=== PATIENT | female | born 2000 | race Caucasian/White ===

== ENCOUNTER 2021-06-02 17:29 | Emergency (ER) | payer OTHER ==
--- NOTE | 2021-06-02 18:30 | ED Physician Documentation ---
PD HPI LOWER EXT INJURY - Stated complaint Stated Complaint: RT ANKLE INJURY - Chief complaint Chief Complaint: Trauma Ext - History obtained from History obtained from: Patient - History of Present Illness PD HPI LOW EXT INJURY LOCATION: Right, Ankle Type of injury: Fall, Twist Where injury occurred: Street Timing - onset: How many days ago (5) Timing - duration: Days (5) Timing - details: Gradual onset Pain level max: 6 Pain level now: 5 Improved by: Rest, Ice, Immobilization Worsened by: Moving, Palpating Associated symptoms: Swelling, Discolored (bruising to lateral aspect R ankle). No: Weakness, Numbness, Tingling Contributing factors: No: Anticoagulated, Prior ortho surgery, Prosthetic joint Recently seen: Clinic (Patient states that she was seen in the clinic for same. No x-rays taken. She states increased swelling and pain since the original event. Concerned about possible fracture.) Review of Systems Constitutional: denies: Fever, Chills Respiratory: denies: Cough GI: denies: Vomiting, Diarrhea Skin: denies: Rash Musculoskeletal: denies: Neck pain, Back pain Neurologic: denies: Headache PD PAST MEDICAL HISTORY - Past Medical History Past Medical History: No - Past Surgical History Past Surgical History: No - Present Medications Home Medications: Ambulatory Orders Medication Instructions Recorded Confirmed No Known Home Medications 06/02/21 06/02/21 - Allergies Allergies/Adverse Reactions: Allergies Allergy/AdvReac Type Severity Reaction Status Date / Time No Known Drug Allergies Allergy Verified 06/02/21 17:40 - Social History Does the pt smoke?: No Smoking Status: Never smoker Does the pt drink ETOH?: No Does the pt have substance abuse?: No PD ED PE NORMAL - Vitals Vital signs reviewed: Yes - General General: Alert and oriented X 3, No acute distress - HEENT HEENT: Moist mucous membranes - Cardiac Cardiac: RRR - Respiratory Respiratory: No respiratory distress, Clear bilaterally - Derm Derm: Warm and dry - Extremities Extremities: Other (Tender to palpation over the right lateral malleolus. Mild ecchymosis. No tenderness over the fifth metatarsal. No gross deformity. Mild swelling over the right lateral malleolus as well. No proximal tenderness. Neurovascular intact. Otherwise normal exam of the right lower extremity and foot) - Neuro Neuro: Alert and oriented X 3 Results - Vitals Vitals: Vital Signs - 24 hr 06/02/21 06/02/21 17:37 19:27 Temperature 36.4 C L Heart Rate 88 79 Respiratory 16 18 Rate Blood Pressure 134/62 H 105/63 O2 Saturation 99 99 Oxygen O2 Source Room air - Rads (name of study) Right ankle x-ray Radiology: Final report received, EMP read contemporaneously, See rad report (No acute abnormality) PD MEDICAL DECISION MAKING - ED course Complexity details: reviewed results, re-evaluated patient, considered differential, d/w patient ED course: 21-year-old female with a right ankle sprain. No acute findings on x-ray. Placed in ankle air splint for comfort. Declines pain medication here or for home. Ambulating well. Patient counseled regarding signs and symptoms for which I believe and urgent re-evaluation would be necessary. Patient with good understanding of and agreement to plan and is comfortable going home at this time This document was made in part using voice recognition software. While efforts are made to proofread this document, sound alike and grammatical errors may occur. Departure - Departure Disposition: 01 Home, Self Care Clinical Impression: Right ankle sprain Qualifiers: Encounter type: initial encounter Involved ligament of ankle: unspecified ligament Qualified Code(s): S93.401A - Sprain of unspecified ligament of right ankle, initial encounter Condition: Good Instructions: ED Sprain Ankle Follow-Up: your,doctor as needed [Other] Comments: You can continue to use Motrin or Tylenol as needed for pain. You may bear weight as tolerated. Your x-ray does not show any acute abnormalities today. Please follow-up with your doctor for further care as needed. Discharge Date/Time: 06/02/21 19:28
--- NOTE | 2021-06-02 18:48 | XRAY Report ---
PROCEDURE: Ankle 3 View RT INDICATIONS: Trauma TECHNIQUE: 3 views of the ankle were acquired. COMPARISON: None FINDINGS: Bones: No fractures or dislocations. Ankle mortise is normally aligned. No suspicious bony lesions . Soft tissues: No tibiotalar joint effusion. Achilles tendon appears normal. IMPRESSION: Intact right ankle. Reviewed by: Angella Flores MD on 06/02/2021 6:47 PM PDT Approved by: Angella Flores MD on 06/02/2021 6:47 PM PDT Station ID: [id number]
[2021-06-02 19:28] VITALS: BP 105/63
== END 2021-06-02 19:28 | disposition home or self-care (01) ==
LOC: ED 17:29
DX: S93.401A Sprain of unspecified ligament of right ankle, initial encounter (principal); W19.XXXA Unspecified fall, initial encounter; Y92.410 Unspecified street and highway as the place of occurrence of the external cause
CPT/HCPCS: 99282; 99283

== ENCOUNTER 2022-06-26 08:00 | Outpatient (CLI) | payer OTHER ==
--- NOTE | 2022-06-26 14:33 | XRAY Report ---
PROCEDURE: Elbow 2 View RT INDICATIONS: R ELBOW PX TECHNIQUE: 2 views of the elbow were acquired. COMPARISON: None FINDINGS: Bones: No fractures or dislocations. No suspicious bony lesions. Soft tissues: No elbow joint effusion. No suspicious soft tissue calcifications. IMPRESSION: Unremarkable radiographic examination of right elbow. Reviewed by: John Castañeda MD on 06/26/2022 2:32 PM PST Approved by: John Castañeda MD on 06/26/2022 2:32 PM PST Station ID: [id number]
== END 2022-06-26 23:59 | disposition home or self-care (01) ==
LOC: DI.N 08:00
PROVIDERS: ATTEND Nurse Practitioner
DX: M25.521 Pain in right elbow (principal)